=== PATIENT | male | born 1970 | race African-American/Black ===

== ENCOUNTER 2021-08-31 21:52 | Emergency (ER) | payer SELFPAY ==
[2021-08-31 22:54] LABS: SARS-CoV-2 NAA Rapid Test Not Detected (NotDetected)
== END 2021-09-01 03:10 | disposition home or self-care (01) ==
LOC: CSHERS 21:52
DX: B34.9 Viral infection, unspecified (principal); Z20.822 Contact with and (suspected) exposure to COVID-19; F17.220 Nicotine dependence, chewing tobacco, uncomplicated
CPT/HCPCS: 93005